=== PATIENT | female | born 1945 | race Caucasian/White ===

== ENCOUNTER 2017-04-07 14:30 | Outpatient (RCR) | payer OTHER ==
[~2017-04-07 14:30] MED LIST: ASPIRIN EC81 MG ORAL; CRANBERRY PO; DULERA 100 MCG/13 GM INH; FISH OIL300 M1 PO; NAPROXYN PO; NIASPAN ER750 MG ORAL; PRILOSEC40 MG ORAL; SIMVASTATIN40 MG ORAL; SINGULAIR10 MG ORAL; VIT C PO; WELLBUTRIN SR100 MG ORAL; ZESTORETIC 10-1 EAC1 PO; aleve PO; super B complex PO; tylenol PO; vit D PO
== END 2017-04-15 | disposition home or self-care (01) ==
LOC: PTY 14:30
DX: M75.102 Unspecified rotator cuff tear or rupture of left shoulder, not specified as traumatic (principal); M25.512 Pain in left shoulder

== ENCOUNTER 2017-04-23 15:00 | Outpatient (RCR) | payer OTHER | END 2017-05-13 | disposition home or self-care (01) | LOC: PTY 15:00 | DX: M75.102 Unspecified rotator cuff tear or rupture of left shoulder, not specified as traumatic (principal); M25.512 Pain in left shoulder ==

== ENCOUNTER 2017-05-15 09:49 | Outpatient (RCR) | payer OTHER | END 2017-06-13 | disposition home or self-care (01) | LOC: PTY 09:49 | DX: M75.102 Unspecified rotator cuff tear or rupture of left shoulder, not specified as traumatic (principal); M25.512 Pain in left shoulder ==

== ENCOUNTER 2017-05-18 14:50 | Outpatient (RCR) | payer OTHER | END 2017-06-13 | disposition home or self-care (01) | LOC: PTY 14:50 | DX: M54.5 Low back pain (principal); M79.606 Pain in leg, unspecified; M75.102 Unspecified rotator cuff tear or rupture of left shoulder, not specified as traumatic; M25.512 Pain in left shoulder; I10 Essential (primary) hypertension ==

== ENCOUNTER 2017-06-15 13:00 | Outpatient (RCR) | payer OTHER | END 2017-07-13 | disposition home or self-care (01) | LOC: PTY 13:00 | DX: M75.102 Unspecified rotator cuff tear or rupture of left shoulder, not specified as traumatic (principal); M25.512 Pain in left shoulder ==

== ENCOUNTER 2017-07-24 13:00 | Outpatient (RCR) | payer OTHER | END 2017-08-13 | disposition home or self-care (01) | LOC: PTY 13:00 | DX: M75.102 Unspecified rotator cuff tear or rupture of left shoulder, not specified as traumatic (principal); M25.512 Pain in left shoulder ==

== ENCOUNTER 2017-09-09 10:30 | Outpatient (RCR) | payer OTHER | END 2017-09-12 | disposition home or self-care (01) | LOC: PTY 10:30 | DX: M75.102 Unspecified rotator cuff tear or rupture of left shoulder, not specified as traumatic (principal); M25.512 Pain in left shoulder ==

== ENCOUNTER 2017-09-18 13:00 | Outpatient (RCR) | payer OTHER | END 2017-10-13 | disposition home or self-care (01) | LOC: PTY 13:00 | DX: M75.102 Unspecified rotator cuff tear or rupture of left shoulder, not specified as traumatic (principal); M25.512 Pain in left shoulder ==